=== PATIENT | female | born 1995 | race Caucasian/White ===

== ENCOUNTER 2016-09-07 18:46 | Emergency (ER) | payer OTHER ==
[~2016-09-07 18:46] MED LIST: IBUPROFEN600 MG PO
== END 2016-09-07 20:54 | disposition left against medical advice (07) ==
LOC: ER1 18:46
DX: Z53.21 Procedure and treatment not carried out due to patient leaving prior to being seen by health care provider (principal)

== ENCOUNTER 2020-07-02 12:01 | Emergency (ER) | payer OTHER ==
[~2020-07-02 12:01] MED LIST changes: +COLACE 100MG C100 MG PO; +LORTAB 5-325 M1 EACH PO
[2020-07-02 12:48] LABS: HEMOGLOBIN 12.7 gm/dl (12.3-15.3); RED BLOOD COUNT 4.41 M/UL (4.00-5.10); WHITE BLOOD COUNT 6.2 K/UL (4.5-11.0)
[2020-07-02 13:22] LABS: BUN/CREATININE RATIO 19 (0-10)
[2020-07-02] MEDS ORDERED: ANTI-ITCH28 GM TP (14:08)
== END 2020-07-02 14:23 | disposition home or self-care (01) ==
LOC: ER1 12:01
PROVIDERS: Physician Assistant
DX: R07.89 Other chest pain (principal); F17.290 Nicotine dependence, other tobacco product, uncomplicated; E03.9 Hypothyroidism, unspecified
CPT/HCPCS: 36415; 71045; 80053; 82550; 82553; 83874; 84484; 85025; 85379; 93005; 99285